=== PATIENT | male | born 1985 | race Caucasian/White ===

== ENCOUNTER 2023-11-18 11:03 | Emergency (ER) | payer BC, SELFPAY ==
[2023-11-18 11:03] VITALS: BMI 45.5
[2023-11-18 11:07] VITALS: BP 159/88
--- NOTE | 2023-11-18 11:42 | ED.GENMED ---
Addendum entered and electronically signed by Abdirahman Oneill PA-C 11/22/23 09:28:
Patient wound culture grew 3 separate organisms including Proteus mirabilis, Pseudomonas aeruginosa and MSSA. Patient was placed on doxycycline to go home with. Call placed to the patient to see how he is responding to the antibiotics but
unfortunately patient did not order picker/assembler. Voice message left for patient to contact us back. Patient may require antibiotic change. Pansensitive to levofloxacin.
Original Note:
History of Present Illness
General
Chief Complaint: Skin Problem
Source: patient
Time Seen by Provider: 11/18/23 11:25
History of Present Illness
History of Present Illness:
37-year-old male with past medical history of chronic venous stasis ulcer to the left lower extremity presenting to the emergency department for evaluation after he was told that the venous stasis ulcer was infected by his primary care provider on
Sunday and that he needed to go to the ER for IV antibiotics and further evaluation. Patient went to the ER yesterday where he was started on vancomycin and Zosyn and was going to get admitted but became frustrated as he says he did not see any
physician while at the ER and was frustrated with his care there so decided to leave AGAINST MEDICAL ADVICE. He notes that he was not given any prescriptions for antibiotics to go home with. He presents back to the emergency department today in
hopes to get an oral antibiotic as he notes that he has an exam for [place] tomorrow that he cannot miss as well as his birthday and does not wish to be admitted during this time. Patient states that he has an appointment with a vascular
surgeon for this coming and that he has seen wound care in the past but is looking for a new wound care provider. He notes that throughout the 6 years since he has had the ulcer that his leg has been infected and has gotten better usually
with just oral antibiotics. He denies any fevers, chills, rigors. He denies any history of diabetes and notes that he had blood work through his primary care provider recently for this. Patient does smoke but states he is down to 1 to 2
cigarettes daily. No other concerns.
Past History
Past History
ED Past Medical History: Psychiatric (Previous substance abuse but currently sober) and Other (Chronic venous stasis)
ED Past Surgical History: Orthopedic and Other
Social History
Tobacco: Smoker
Alcohol: None
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
Personal: Single
Living: alone
Employment: Employed
Review of Systems
Review of Systems
All Other Systems: ROS reviewed and negative except as documented in HPI and ROS
Phy Exam
Physical Exam
Physical Exam:
GENERAL: Alert , in no apparent distress
EYE: conjunctiva clear
Head: Normocephalic atraumatic
NECK: Supple,
ENT: mmm.
LUNGS: no acute respiratory distress
NEUROLOGICAL: Alert and oriented
SKIN: Warm and dry, left lower extremity: 2 weeping venous stasis ulcers to the lower leg. 1 along the mid medial lower leg measuring approximately 1-1/2 cm in size, surrounding erythema and weeping. 1 along the distal medial calcaneus measuring 8
mm circumferentially with minimal erythema but is also weeping. There is chronic venous stasis dermatitis noted to the bilateral lower extremities but the left lower leg has more erythema
MUSCULOSKELETAL: well perfused. Easily palpable pedal and tibial pulse. Cap refill less than 2 seconds and sensation is grossly intact to light touch
PSYCH: Normal and appropriate interaction.
Scores
Heart Failure Risk
Heart Failure Risk Score: Not Applicable
Heart Score for Chest Pain Patients
STEMI patient?: Not applicable
Withdrawal Assessment of Alcohol
Withdrawal Assessment Completed?: Not applicable
Course
Orders/Labs/Results
Orders:
Orders
11/18/23 11:41
US Periph Venous LOWER Ext LT Urgent
Comment:
Reason For Exam: chronic wound, poor healing, edema
11/18/23 11:53
Complete Blood Count/With Diff Urgent
Comprehensive Metabolic Panel Urgent
11/18/23 13:59
Wound Culture [Wound/Abscess/Other Culture] Urgent
ESAU Source: Leg
Specimen Description: Left
Date Specimen was Collected: 11/18/23
Time Specimen was Collected: 13:57
Abnormal Lab Results
11/18/23
11:53
RBC 3.96 L 10^6/uL
(4.70-6.10)
Hgb 12.0 L g/dL
(13.0-18.0)
Hct 34.6 L %
(39.0-52.0)
Immature Gran % 0.7 H %
(0-0.5)
Creatinine 0.5 L mg/dL
(0.7-1.3)
Glucose 105 H mg/dl
(70-99)
AST 93 H U/L
(17-59)
ALT 76 H U/L
(0-50)
11/18/23 11:53
11/18/23 11:53
Vital Signs
Initial and Last Documented VS:
Initial Vital Signs
Temp Pulse Resp BP Pulse Ox
98.2 F 84 18 159/88 98
11/18/23 11:07 11/18/23 11:07 11/18/23 11:07 11/18/23 11:07 11/18/23 11:07
Last Documented Vital Signs
Temp Pulse Resp BP Pulse Ox
98.2 F 84 18 142/79 100
11/18/23 11:07 11/18/23 11:07 11/18/23 11:07 11/18/23 14:40 11/18/23 14:40
MDM/Problems Addressed
Differential Diagnosis Includes:
Infected venous stasis ulcer, cellulitis, abscess, osteomyelitis, necrotizing fasciitis
MDM/Problems Addressed:
37-year-old male presenting the emergency department for evaluation of effected venous stasis ulcer. He has been dealing with this venous stasis ulcer for 6 years and notes that in previous infections he has done well with oral antibiotics. Seen
by primary care on Sunday who gave him 2 doses of doxycycline to start his treatment but advised to go to the ER for IV antibiotics and admission. Patient upset with his care at [facility] and signed out AMA last night. Presents to the ER
today stating he does not wish to be admitted but wants to be started on oral antibiotics as he has important activities at home that need to be cared for prior to being admitted. He already does have outpatient follow-up with vascular. He is
amenable to outpatient follow-up here with wound care. Will check labs and an ultrasound here. Reassessment following.
Chronic conditions affecting care: Other (Chronic venous stasis)
Acute Exacerbation and/or Progression of Chronic Illness: Other (Venous stasis ulcer)
*Radiology
Radiology exam reviewed: radiology read reviewed
*Pulse Oximetry
Patient hypoxic: no
*Critical Care Note
Total Time (30-74mins, 75-104mins- exclusive of procedures): Not Applicable
Data Reviewed
Review of Other/Old Records Reveals: Labs
Patient Management
Escalation/DeEscalation of care consider admission/obs:
Patient labs and ultrasound are unremarkable. He was given a prescription for doxycycline x 10 days. Provided with information for outpatient wound care center. Agreeable to return precautions. Stable for discharge home
ED Attending Note
-
Portions of this chart may have been created with voice recognition software.� Occasional wrong word or��sound alike� substitutions may have occurred due to the inherent limitations of voice recognition software.
Discharge Plan
Departure
Patient Disposition: Home (Routine Discharge)
Date of Disposition: 11/18/23
Time of Disposition: 14:38
Patient with high blood pressure during this ER visit?: Yes
Discharge Problem:
Venous stasis ulcer of left lower extremity, Cellulitis of left lower extremity
Instructions: Wound [place] ([place]), [facility]
Prescriptions:
New
doxycycline hyclate 100 mg tablet
100 mg PO BID 10 Days Qty: 20 0RF
Referrals:
Wound Care Center [Outside]
UNKNOWN - PT DOES,NOT KNOW [Family Provider] -
Interventions
Interventions:
*Risk Screen - Suicide Last Done: 11/18/23 11:13
*General Assessment Last Done: 11/18/23 11:13
*Neglect/Abuse Screening Last Done: 11/18/23 11:13
ED- Fall Risk Assessment Last Done: 11/18/23 12:03
*ED COVID-19 Vaccine History Last Done: 11/18/23 12:03
*Nursing Disposition Last Done: 11/18/23 14:59
ED-Skin Assessment Last Done: 11/18/23 12:03
Discharge Date and Time
Discharge Date/Time: 11/18/23 15:00
Print Language: ARABIC
[2023-11-18 11:58] VITALS: BP 157/98
[2023-11-18 12:00] VITALS: BP 146/121
[2023-11-18 12:07] LABS: % Basophils 0.5 % (0-2); % Immature Granulocytes 0.7 % (0-0.5); % Lymphocytes 25.6 % (20.5-51.1); % Monocytes 7.2 % (1.7-9.3); Absolute Eosinophils 0.1 10^3/uL (0-0.7); Absolute Lymphocytes 1.6 10^3/uL (1.2-3.4); Absolute Monocytes 0.4 10^3/uL (0.1-0.6); Hematocrit 34.6 % (39.0-52.0); Mean Corp Hgb Conc. 34.7 g/dL (33.0-37.0); Mean Corpuscular Hgb 30.3 pg (27.0-31.0); Mean Corpuscular Volume 87.4 fL (80.0-94.0); Mean Platelet Volume 9.7 fL (7.4-10.4); Nucleated Red Blood Cells % 0 % (-); Platelet Count 231 10^3/uL (130-400); Red Blood Cell Count 3.96 10^6/uL (4.70-6.10); Red Cell Dist. Width 13.3 % (11.5-14.5); White Blood Cell Count 6.1 10^3/uL (4.8-10.8)
[2023-11-18 12:21] LABS: ALT (SGPT) 76 U/L (0-50); AST (SGOT) 93 U/L (17-59); Albumin 3.9 g/dl (3.5-5.0); Alkaline Phosphatase 111 U/L (38-126); Blood Urea Nitrogen 11 mg/dl (9-20); Calcium 8.8 mg/dl (8.4-10.2); Carbon Dioxide 26 mmol/L (22-30); Chloride 106 mmol/L (98-107); Estimated Creatinine Clearance > 125 ml/min; Glucose 105 mg/dl (70-99); Potassium 3.9 mmol/L (3.5-5.1); Sodium 139 mmol/L (135-145); Total Bilirubin 0.7 mg/dl (0.2-1.3); Total Protein 7.2 g/dl (6.3-8.2); eGFR > 60.00
[2023-11-18 14:40] VITALS: BP 142/79
== END 2023-11-18 15:00 | disposition home or self-care (01) ==
LOC: EMR 11:03
PROVIDERS: Physician Assistant Medical; EMERGENCY PHYSICIAN Emergency Medicine
DX: I83.028 Varicose veins of left lower extremity with ulcer other part of lower leg (principal); L97.829 Non-pressure chronic ulcer of other part of left lower leg with unspecified severity; L03.116 Cellulitis of left lower limb; F17.210 Nicotine dependence, cigarettes, uncomplicated; R03.0 Elevated blood-pressure reading, without diagnosis of hypertension
CPT/HCPCS: 99284; 80053; 85025; 87070; 87077; 87147; 87186; 87205; 93971

== ENCOUNTER 2024-08-21 23:42 | Inpatient (IN) | payer BC, SELFPAY ==
[2024-08-21 17:40] VITALS: BP 172/90
[2024-08-21 18:15] LABS: % Basophils 0.7 % (0-2); % Eosinophils 0.5 % (0-6); % Immature Granulocytes 0.4 % (0-0.5); % Lymphocytes 16.9 % (20.5-51.1); % Neutrophils 72.5 % (42.2-75.2); Absolute Basophils 0.1 10^3/uL (0-0.2); Absolute Eosinophils 0.1 10^3/uL (0-0.7); Absolute Lymphocytes 1.6 10^3/uL (1.2-3.4); Absolute Monocytes 0.9 10^3/uL (0.1-0.6); Absolute Neutrophils 6.9 10^3/uL (1.4-6.5); Hematocrit 28.3 % (39.0-52.0); Hemoglobin 9.8 g/dL (13.0-18.0); Mean Corp Hgb Conc. 34.6 g/dL (33.0-37.0); Mean Corpuscular Hgb 28.9 pg (27.0-31.0); Mean Corpuscular Volume 83.5 fL (80.0-94.0); Nucleated Red Blood Cells % 0 % (-); Platelet Count 81 10^3/uL (130-400); Red Blood Cell Count 3.39 10^6/uL (4.70-6.10); White Blood Cell Count 9.6 10^3/uL (4.8-10.8)
[2024-08-21 18:17] LABS: Anisocytosis 1+; Hypochromasia 1+; Normal RBC Morphology No; Target Cells 1+
[2024-08-21 18:18] LABS: ALT (SGPT) 44 U/L (0-50); AST (SGOT) 167 U/L (17-59); Albumin 2.8 g/dl (3.5-5.0); Alkaline Phosphatase 170 U/L (38-126); Blood Urea Nitrogen 11 mg/dl (9-20); Calcium 8.3 mg/dl (8.4-10.2); Carbon Dioxide 16 mmol/L (22-30); Chloride 106 mmol/L (98-107); Glucose 108 mg/dl (70-99); Potassium 3.8 mmol/L (3.5-5.1); Sodium 138 mmol/L (135-145); Total Bilirubin 14.3 mg/dl (0.2-1.3); Total Protein 8.7 g/dl (6.3-8.2)
[2024-08-21 19:27] VITALS: BMI 43.3
--- NOTE | 2024-08-21 19:37 | ED.GENMED ---
History of Present Illness
General
Chief Complaint: Abnormal Lab Value
Source: patient
Time Seen by Provider: 08/21/24 19:20
History of Present Illness
History of Present Illness:
38-year-old male with past medical history of a left foot venous stasis ulcer, previous substance abuse presenting to the emergency department at the recommendation of his wound care doctor after his provider noted that he appeared jaundiced.
Patient states that he believes his symptoms started a few weeks ago but states he is overall unsure. He does note for a extended period of time he was taking excess Tylenol noting at times up to 24 tablets a day due to pain in his left lower
extremity from his venous stasis and wounds. Patient states he stopped taking the Tylenol about 3 weeks ago and switched to Motrin and he notes he is taking anywhere from 4 to 8 tablets of this. Patient also states that he recently relapsed into
his alcohol use and is drinking multiple seltzers per day. Patient is denying any current abdominal pain, fevers, chills, rigors, nausea, vomiting, bowel changes. Patient does note his urine is a dark jelena color. Patient denies any history of IV
drug abuse but does note a history of opiate use. He denies any known history of hepatitis or HIV. Family history was noncontributory for any GI related cancers
Past History
Past History
ED Past Medical History: Psychiatric (Previous substance abuse but currently sober) and Other (Chronic venous stasis)
ED Past Surgical History: Orthopedic and Other
Social History
Tobacco: Smoker
Alcohol: Chronic alcoholic
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
Personal: Single
Living: alone
Employment: Employed
Review of Systems
Review of Systems
All Other Systems: ROS reviewed and negative except as documented in HPI and ROS
Phy Exam
Physical Exam
Physical Exam:
GENERAL: Alert , in no apparent distress
EYE: icteric sclera
HEAD: NCAT
ENT: mmm.
CARDIAC: Regular rate and rhythm .
LUNGS: Clear breath sounds bilaterally, no acute respiratory distress, no wheezes/rales/rhonchi
ABDOMEN: Firm and distended but no pain on palpation, positive ascites, no r/g, no cvat
NEUROLOGICAL: Alert and oriented
SKIN: Warm and dry, skin intact. Diffusely jaundiced
MUSCULOSKELETAL: Wound to the left lower extremity along the medial posterior calcaneus, dried, no surrounding cellulitis
PSYCH: Normal and appropriate interaction.
Scores
Heart Failure Risk
Heart Failure Risk Score: Not Applicable
Heart Score for Chest Pain Patients
STEMI patient?: Not applicable
Withdrawal Assessment of Alcohol
Withdrawal Assessment Completed?: Not applicable
Course
Orders/Labs/Results
Orders:
Orders
08/21/24 17:48
Complete Blood Count/With Diff Urgent
Comprehensive Metabolic Panel Urgent
08/21/24 19:30
Urine Drug Abuse Screen Urgent
08/21/24 19:31
CT Abd/pel Without Iv Or Oral Urgent
Comment:
Reason For Exam: liver/renal failure
08/21/24 20:54
ABO2 Urgent
DialedIN Wristband Number:
Associate notified that ABO2 has been ordered: [id number]
Date: 08/21/24
Time: 21:24
Foreclosure Home Inspector ID: [id number]
Alcohol Urgent
HIV Combo Urgent
Hepatitis A IgM Antibody Urgent
Hepatitis B Core Ab, IgM Urgent
Hepatitis B Surface Antibody Urgent
Hepatitis B Surface Antigen Urgent
Hepatitis C Antibody Urgent
Lipase Urgent
PTT Urgent
Prothrombin Time Urgent
Salicylate Urgent
Tylenol [Acetaminophen] Urgent
08/21/24 21:33
Type+Screen Urgent
MEDOP [employer]K Wristband Number:
Abnormal Lab Results
08/21/24 08/21/24
17:48 20:54
RBC 3.39 L 10^6/uL
(4.70-6.10)
Hgb 9.8 L g/dL
(13.0-18.0)
Hct 28.3 L %
(39.0-52.0)
RDW 25.0 H %
(11.5-14.5)
Plt Count 81 L 10^3/uL
(130-400)
Absolute Neuts (auto) 6.9 H 10^3/uL
(1.4-6.5)
Absolute Monos (auto) 0.9 H 10^3/uL
(0.1-0.6)
Lymphocytes % 16.9 L %
(20.5-51.1)
PT 32.7 H Sec
(11.4-14.6)
APTT 73.0 H Sec
(23.4-35.0)
Carbon Dioxide 16 L mmol/L
(22-30)
Creatinine 1.8 H mg/dL
(0.7-1.3)
Glucose 108 H mg/dl
(70-99)
Calcium 8.3 L mg/dl
(8.4-10.2)
Total Bilirubin 14.3 H mg/dl
(0.2-1.3)
AST 167 H U/L
(17-59)
Alkaline Phosphatase 170 H U/L
(38-126)
Total Protein 8.7 H g/dl
(6.3-8.2)
Albumin 2.8 L g/dl
(3.5-5.0)
Lipase 624 H U/L
(23-300)
Salicylates < 1.0 L mg/dl
(2.0-20.0)
Acetaminophen < 10 L ug/ml
(10-30)
08/21/24 17:48
08/21/24 17:48
Vital Signs
Initial and Last Documented VS:
Initial Vital Signs
Temp Pulse Resp BP Pulse Ox
99.3 F 116 18 172/90 96
08/21/24 17:40 08/21/24 17:40 08/21/24 17:40 08/21/24 17:40 08/21/24 17:40
Last Documented Vital Signs
Temp Pulse Resp BP Pulse Ox
99.3 F 103 17 145/66 96
08/21/24 17:40 08/21/24 21:15 08/21/24 21:15 08/21/24 21:27 08/21/24 21:27
MDM/Problems Addressed
Differential Diagnosis Includes:
Liver failure secondary to Tylenol use, alcohol use, infectious etiology such as hepatitis B/C considered given his history of substance use, malignancy
MDM/Problems Addressed:
38-year-old male presenting emergency department for evaluation at the request of wound care provider for jaundice. Patient is profoundly jaundiced. Labs ordered in triage reveal hemoglobin of 9.8 and more concerning his chemistry with his bicarb
of 16, creatinine of 1.8, T bilirubin of greater than 14, AST of 167 and alkaline phosphatase of 170. I added on labs including coag, toxicology workup, hepatitis and HIV testing. CT of the abdomen and pelvis ordered as a noncontrast study given
patient's renal dysfunction. Patient will be admitted for further evaluation
Chronic conditions affecting care: Other (Substance/alcohol abuse)
*Radiology
Radiology exam reviewed: radiology read reviewed
*Pulse Oximetry
Patient hypoxic: no
*Critical Care Note
Total Time (30-74mins, 75-104mins- exclusive of procedures): Not Applicable
Data Reviewed
Review of Other/Old Records Reveals: Labs and Records
Patient Management
Escalation/DeEscalation of care consider admission/obs:
CT scan shows diffusely hypoattenuating liver that is mildly enlarged with small volume ascites and splenomegaly. I do not have concern for acute cholecystitis given patient is without pain, no nausea or vomiting. I suspect patient's symptoms are
most likely related to alcoholic hepatitis but cannot rule out Tylenol ingestion from longstanding use (patient does maintain he has not used Tylenol in at least 2 to 3 weeks). Hospitalist team to admit. GI team can evaluate and consult.
ED Attending Note
-
Portions of this chart may have been created with voice recognition software.� Occasional wrong word or��sound alike� substitutions may have occurred due to the inherent limitations of voice recognition software.
Discharge Plan
Departure
Patient Disposition: Admit
Date of Disposition: 08/21/24
Time of Disposition: 21:36
Presentation/result/management discussed w/ accepting MD/DO: Hospitalist
Discharge Problem:
Hepatitis, TYRESE (acute kidney injury), Alcohol abuse
Prescriptions:
No Action
milk thistle 150 mg Capsule
150 mg PO DAILY
ibuprofen 200 mg Tablet
800 mg PO HSPRN PRN (Reason: mild pain)
famotidine [Pepcid AC] 20 mg Tablet
20 mg PO DAILYPRN PRN (Reason: gerd)
omeprazole magnesium [Prilosec OTC] 20 mg Tablet,Delayed Release (Dr/Ec)
40 mg PO DAILY
Referrals:
NONE,* [Family Provider] -
Interventions
Interventions:
*Risk Screen - Suicide Last Done: 08/21/24 17:40
*General Assessment Last Done: 08/21/24 17:40
*Neglect/Abuse Screening Last Done: 08/21/24 17:40
*ED COVID-19 Vaccine History Last Done: 08/21/24 17:40
Discharge Date and Time
Print Language: UPPER SORBIAN
[2024-08-21 21:25] LABS: Acetaminophen < 10 ug/ml (10-30); Alcohol 64 mg/dl; INR 3.15; Lipase 624 U/L (23-300); PT 32.7 Sec (11.4-14.6); Salicylate < 1.0 mg/dl (2.0-20.0)
[2024-08-21 21:26] VITALS: BP 143/66
[2024-08-21 21:27] VITALS: BP 145/66
[2024-08-21 22:06] LABS: Hepatitis C Antibody Negative (Negative)
[2024-08-21 22:45] LABS: Hepatitis B Surface Antigen Negative (Negative)
--- NOTE | 2024-08-21 22:49 | HPS.HSE ---
Addendum entered and electronically signed by Carlos Maurer DO 08/22/24 00:06:
Patient seen and examined independently. Agree with findings and plan as set forth by Jennifer Lucero PA-C.
Patient is a 38y M with PMH significant for obesity and polysubstance abuse who presents to ED for evaluation of jaundice. Patient states that his noted yellowing of his eyes about one month ago. He was seen at Wound Care today (for
chronic L ankle wound) and was noted to be grossly jaundiced. He was referred to the ED for further evaluation.
Patient denies any abdominal pain, N/V, fevers / chills, etc.
Patient states that he started drinking alcohol at age 10. He was a heavy drinker and drug user (opioids / pills) for several years. He has been sober for the past 5-6 years.
Patient recently was placed on disability (about one month ago) and notes that he started drinking again. He has been drinking an average of 8 White Claws per day for the past 3-4 weeks. He has recently started to 'wean' this down and drank 3
today.
In addition to the alcohol intake, patient notes that he had been taking 24 tabs of Tylenol daily for pain control since May.
When his noted the yellowed eyes, he cut the Tylenol use down to 12 tabs a day and then stopped completely a few weeks ago.
Ass:
Acute / Subacute Hepatitis
TYRESE
Normocytic Anemia
Thrombocytopenia
Chronic Left Ankle Wound
Morbid Obesity
Alcohol Use Disorder
Plan:
Admit for further evaluation and treatment.
Abnormal liver functions / gross jaundice / anemia and thrombocytopenia noted.
Suspect due primarily to EtOH +/- Tylenol overuse (over the past few months).
GI evaluation for additional recommendations.
Monitor for withdrawal symptoms and treat accordingly.
Wound Care eval re: L ankle wound.
Original Note:
Family Physician
-
Family Physician: * NONE
Chief Complaint
-
Jaundice
History of Present Illness
Patient is a 38 y/o male who presents with jaundice. Patient reports he has been dealing with a wound on his left ankle for the past six years. He has been following at the wound care center recently for the wound. He reports about 3 months ago he
started taking large amounts of Tylenol about 24 tablets ago, then he cut down to about 12 tablets a day, which he stopped about 3 weeks ago. At that time he changed taking 800mg ibuprofen at bedtime for the pain. He reports he had to go on
disability due to the ankle wound and since then he has become increasingly depressed. He states he started drinking about 8 White Claw hard seltzers a day with last drink just prior to arrival.
Medical History
Past Medical History
Past Medical History: Reports Other
Additional Past Medical History:
Chronic Left Ankle Wound
Prior Opioid Use Disorder - Last usage 2017
Past Surgical History: Reports Other
Additional Past Surgical History:
Hernia Repair
Knee Arthroscopy
Social History
Tobacco: Non-smoker
Alcohol: Daily
Drug: Former User
Family History
Family History: Not pertinent
Allergies / Home Medications
Allergies reflects when Allergies were last updated in [employer].
Home Medications with original date entered in [employer]
Allergy/Medication List:
Allergies
Allergy/AdvReac Type Severity Reaction Status Date / Time
No Known Allergies Allergy Verified 08/21/24 17:43
Home Medications
famotidine 20 mg tablet (Pepcid AC) 20 mg PO DAILYPRN PRN gerd 08/21/24
ibuprofen 200 mg tablet 800 mg PO HSPRN PRN mild pain 08/21/24
milk thistle 150 mg capsule 150 mg PO DAILY 08/21/24
omeprazole magnesium 20 mg tablet,delayed release (Prilosec OTC) 40 mg PO DAILY 08/21/24
Review of Systems
-
A 12 point ROS was completed and negative except as noted: Yes
Constitutional: Denies Fever or Chills
Respiratory: Denies Cough or Trouble Breathing
Cardiac: Denies Chest Pain or Palpitations
Abdomen/GI: Reports See HPI
Physical Exam
Vital Signs
Vital Signs
Temp Pulse Resp BP Pulse Ox
99.3 F 103 17 145/66 96
08/21/24 17:40 08/21/24 21:15 08/21/24 21:15 08/21/24 21:27 08/21/24 21:27
Physical Exam
General: Comfortable and Conversant
HEENT: Other (Sclera Icteric)
Respiratory: Clear and Non Labored Respirations
Cardiac: S1/S2 and Regular Rhythm
GI: Soft and Non Tender
Rectal: Deferred by Provider
Musculoskeletal: No Clubbing and No Cyanosis
Skin: Warm, Dry, Jaundice and Other (Left ankle wound wrapped in KRISTIAN)
Neuro: Awake, Alert, Oriented and Nonfocal/grossly intact
Psych: Calm
Laboratory Results
-
08/21/24 17:48
08/21/24 17:48
Laboratory Results
PT 32.7 Sec (11.4-14.6) H 08/21/24 20:54
INR 3.15 08/21/24 20:54
APTT 73.0 Sec (23.4-35.0) H 08/21/24 20:54
Total Bilirubin 14.3 mg/dl (0.2-1.3) H 08/21/24 17:48
AST 167 U/L (17-59) H 08/21/24 17:48
ALT 44 U/L (0-50) 08/21/24 17:48
Alkaline Phosphatase 170 U/L (38-126) H 08/21/24 17:48
Lipase 624 U/L (23-300) H 08/21/24 20:54
Data Reviewed
-
CT Scan: Report Reviewed by me
Lab Data: Labs Reviewed by me
Impression/Plan
-
Acute Hepatitis, suspect acute component from alcohol, concern for subacute/chronic liver damage from previous excess Tylenol use
-Consult GI
-Trend LFTs and PT/INR
-Check Hepatitis Panel
Acute Kidney Injury
-Hold ibuprofen
-Continue IVFs
-Recheck labs in AM
Normocytic Anemia
-Check iron studies, vitamin b12 and folate
Thrombocytopenia, likely from alcohol
-Monitor platelet count
Left Ankle Wound
-Consult wound care
Alcohol Use Disorder
-Continue alcohol withdrawal protocol
-Continue thiamine and folic acid
Code Status: Full Code
[2024-08-21 23:03] LABS: Hepatitis B Surface Antibody Negative
[2024-08-21 23:05] VITALS: BP 142/61
[2024-08-22] VITALS: BP 140/96
[2024-08-22 00:23] VITALS: BP 140/96
[2024-08-22 00:29] LABS: Iron 155 ug/dl (49-181)
[2024-08-22 00:38] LABS: Percent Saturation 77 % (20-50); Total Iron Binding Capacity 200 ug/dl (261-462)
[2024-08-22 00:49] VITALS: BMI 41.6
[2024-08-22 00:50] VITALS: BP 150/97
--- NOTE | 2024-08-22 00:50 | PTCARENOTE ---
Pt arrived onto floor @0050. Pt AAOx3 and able to ambulate into room without assistance. Pt with no complaints of pain or SOB at this time. Pt oriented to room and call reina; will continue to monitor.
[2024-08-22] MEDS: NSS 1000 IV ×2 (01:11→09:05)
[2024-08-22 02:23] LABS: Amphetamines Negative (Negative); Barbiturates Negative (Negative); Benzodiazepines Negative (Negative); Buprenorphine Negative (Negative); Cocaine Negative (Negative); Marijuana Negative (Negative); Methadone Negative (Negative); Methamphetamines Negative (Negative); Opiates Negative (Negative); Phencyclidine Negative (Negative); Tricyclic Antidepressants Negative (Negative)
[2024-08-22 06:00] VITALS: BMI 41.6
[2024-08-22 06:07] LABS: Hepatitis A IgM Antibody Negative (Negative); Hepatitis B Core Ab, IgM Negative (Negative)
[2024-08-22 06:39] LABS: Vitamin B12 > 1000 pg/ml (239-931)
[2024-08-22 06:43] LABS: Folate 2.9 ng/ml (2.76-20)
--- NOTE | 2024-08-22 07:14 | CON.GI ---
Addendum entered and electronically signed by Yvonne Contreras DO 08/22/24 12:15:
The patient was seen and examined by me independently in collaboration with the nurse practitioner.
Past medical history/social history/medications/allergies/family history reviewed.
Lab data and imaging data reviewed.
Brian Barillas is a 38 y.o. male w/ pmhx polysubstance abuse (percocet abuse until 2018; alcohol abuse, last used 4 months ago) admitted with jaundice found to have significantly elevated LFTs and coagulopathy concerning for acute liver failure. No
known prior liver disease or elevations in LFTs. He admits to significant Tylenol use-- up to 24 tylenol tablets daily, last use was 4 months ago, at which time he switched to motrin 200mg up to 12 tablets daily, decreased to 4 tablets at night. He
was using these medications for pain related to venous stasis wounds on his ankle. He reports drinking 6 white claws daily.
PT 32.7 --> 34.2
INR 3.15 --> 3.40
UDS negative
Salicylates <1
Acetaminophen level <10
Etoh level 64
Hgb 9.8 (previously 12.0 in October 2023)
Plt 78
Na 138
K3.8
BUN 11 -->12
Cr. 1.8 --> 1.4
Tbili 14.3 --> 14.8
GGT 116
AST 167 -->153
ALT 44 -->45
Alk phos 170--> 138
Albumin 2.8
Lipase 624
Ferritin 137
B12 >1000
Folate 2.9
HAV IgM Ab negative
HBsAg negative
HBsAb neg
HBcAb IgM neg
HCV Ab neg
HIV Ag/Ab pending
CT A/P w/o contrast: The liver appears diffusely hypoattenuating. Mildly enlarged. Gallbladder is mildly distended which may be secondary to chronic liver disease or fasting state. Small volume ascites and splenomegaly suggestive of portal
hypertension. There is diffuse submucosal fatty deposition within the ascending and proximal transverse colon which is nonspecific and can be seen as a sequela of chronic inflammation.
#Acute on likely chronic liver injury-- suspect multifactorial, etoh + DILI (tylenol and motrin) with clinically significant portal HTN, coagulopathy, anemia and thrombocytopenia
-no evidence of encephalopathy, mental status remains intact
-thrombocytopenia, splenomegaly and mild ascites c/w portal HTN
-DF >100
-NAC gtt started 08/22
-recommend abdominal US w/ dopplers
-hepatitis serologies negative
-thiamine, folate
-give dose of vitamin K
-repeat labs at noon, if worsening coagulopathy, hyponatremia, hypoglycemia or change in mental status, will call transplant center for transfer; if patient is stable to stay at , will order additional serologies
Original Note:
Consultation
-
Date/Time Consultation Requested: 08/22/2439
Date/Time Consultation Performed: 08/22/24 0695
Requesting Provider: Jennifer Lucero PA-C
Performing Provider: HEATHER Drummond, Marisabel Contreras DO
Reason for Consultation: increased LFT's
Medical History
Chief Complaint / HPI
Chief Complaint: jaundice, shakiness
History of Present Illness:
Pt is a 38yo with hx prior substance abuse(ETOH in past with relapse 4 months ago, hx Percocet abuse til 2018), chronic ankle wound, hernia repair with onset of jaundice without prior hx known liver disease. He was noted change in skin color
about 1 month ago and marked jaundice in wound center and sent to ER for evaluation. Pt also admits to taking up to 24 Tylenol per day til 4 months ago when he stopped working due to leg wounds and recently began taking Ibuprofen 12 per day with
recent cut back to 4 tabs at night. He also admits to 6 white claws per day. Pt denies any recent OP labs. In ER noted with neg tox screen including Salicylates<1 and Acetaminophen <10, ETOH level 64, bili 14,3, AST 167, ALT 44, alk phos 170,
lipase 624, creat 1,8, albumin 2.8, INR 3.15, hepatitis panel neg. CT on admission without contrast with liver with diffuse hypoattenuation with mild enlargement with steatosis or hepatitis, small volume ascites, splenomegaly, portal HTN, GB
distention with chronic liver disease vs fasting state, fat deposition within ascending and proximal transverse colon seen with chronic inflammation.
Pt admits to chronic GERD and small amount of rectal bleeding but denies odynophagia, dysphagia, abdominal pain, increased abdominal girth, diarrhea, constipation or black stools. No hx EGD or colonoscopy in past. No prior hepatology
evaluation. + old tattoos, no known hx hepatitis, recently added milk thistle but no other supplement use.
Past Medical History
Past Medical History: Other (substance abuse, venous stasis with chronic left ankle wound)
Past Surgical History: Orthopedic (knee arthroscopy) and Other (hernia repair)
Social History
Tobacco: Former Smoker (quit 6 months ago)
Alcohol: Daily (6 white claws daily)
Drug: Other (recent Tylenol/Ibuprofen use, hx percocet use last 2017 )
Personal: Other (ex )
Living: Other (ex )
Employment: Not Employed (quit with concern for venous status wounds)
Family History
Family History: Other (no family hx liver problems)
Allergies / Home Medications
Allergy/AdvReac Type Severity Reaction Status Date / Time
No Known Allergies Allergy Verified 08/21/24 17:43
�Medication �Instructions �Recorded
famotidine 20 mg tablet (Pepcid AC) 20 mg PO DAILYPRN PRN gerd 08/21/24
ibuprofen 200 mg tablet 800 mg PO HSPRN PRN mild pain 08/21/24
milk thistle 150 mg capsule 150 mg PO DAILY 08/21/24
omeprazole magnesium 20 mg 40 mg PO DAILY 08/21/24
tablet,delayed release (Prilosec
OTC)
Review of Systems
-
History Source: Patient
Constitutional: Reports Fatigue and Other (admits to mild tremors )
EENT: Reports No Symptoms
Respiratory: Reports No Symptoms
Cardiac: Reports No Symptoms
Abdomen/GI: Reports Other (chronic GERD)
: Reports Dark Urine (intermittent then noted daily last 2 weeks )
Skin: Reports Other (LE wounds and swelling )
Neurological: Reports Weakness
Endocrine: Reports No Symptoms
Hematologic/Lymphatic: Reports No Symptoms
Vital Signs
Temp Pulse Resp BP Pulse Ox
97.8 F 101 18 150/97 98
08/22/24 00:50 08/22/24 00:50 08/22/24 00:50 08/22/24 00:50 08/22/24 00:50
Physical Exam
Exam
General: Other (marked jaundice with icteric sclera )
HEENT: Other (poor dentitian )
Respiratory: Clear
Cardiac: Peripheral Edema and Other (tachy low 100's)
GI: Soft, Non Tender and Distended (minimal )
Musculoskeletal: No Clubbing and No Cyanosis
Skin: Warm and Dry
Neuro: Awake, Alert, AO x 3 and Other (b/l mild tremors )
Psych: Calm
Results
WBC 9.6 10^3/uL (4.8-10.8) 08/21/24 17:48
Hgb 9.8 g/dL (13.0-18.0) L 08/21/24 17:48
Hct 28.3 % (39.0-52.0) L 08/21/24 17:48
MCV 83.5 fL (80.0-94.0) 08/21/24 17:48
Plt Count 81 10^3/uL (130-400) L 08/21/24 17:48
Absolute Neuts (auto) 6.9 10^3/uL (1.4-6.5) H 08/21/24 17:48
PT 32.7 Sec (11.4-14.6) H 08/21/24 20:54
INR 3.15 08/21/24 20:54
APTT 73.0 Sec (23.4-35.0) H 08/21/24 20:54
Sodium 138 mmol/L (135-145) 08/21/24 17:48
Potassium 3.8 mmol/L (3.5-5.1) 08/21/24 17:48
Chloride 106 mmol/L (98-107) 08/21/24 17:48
Carbon Dioxide 16 mmol/L (22-30) L 08/21/24 17:48
BUN 11 mg/dl (9-20) 08/21/24 17:48
Creatinine 1.8 mg/dL (0.7-1.3) H 08/21/24 17:48
Calcium 8.3 mg/dl (8.4-10.2) L 08/21/24 17:48
Total Bilirubin 14.3 mg/dl (0.2-1.3) H 08/21/24 17:48
AST 167 U/L (17-59) H 08/21/24 17:48
ALT 44 U/L (0-50) 08/21/24 17:48
Alkaline Phosphatase 170 U/L (38-126) H 08/21/24 17:48
Lipase 624 U/L (23-300) H 08/21/24 20:54
Hepatitis A IgM Ab Negative (Negative) 08/21/24 20:54
Hep Bs Antibody Negative 08/21/24 20:54
Hep B Core IgM Ab Negative (Negative) 08/21/24 20:54
Hepatitis C Antibody Negative (Negative) 08/21/24 20:54
Diagnostic Image Results:
08/21/24 CT A/p without contrast
The liver is diffusely hypoattenuating and mildly enlarged, possibly secondary to steatosis or hepatitis.
Small volume ascites and splenomegaly suggestive of portal hypertension.
The gallbladder appears mildly distended which may be secondary to chronic liver disease or fasting state. If there is concern for acute cholecystitis consider dedicated abdominal ultrasound for further evaluation.
There is diffuse submucosal fatty deposition within the ascending and proximal transverse colon which is nonspecific however can be seen as a sequelae of chronic inflammation.
Prior GI Procedures:
EGD: none
Colonoscopy: none
Assessment / Plan
-
Pt is a 38yo with hx prior substance abuse(ETOH in past with relapse 4 months ago, hx Percocet abuse til 2018), chronic ankle wound, hernia repair with onset of jaundice without prior hx known liver disease. He was noted change in skin color
about 1 month ago and marked jaundice in wound center and sent to ER for evaluation. Pt also admits to taking up to 24 Tylenol per day til 4 months ago when he stopped working due to leg wounds and recently began taking Ibuprofen 12 per day with
recent cut back to 4 tabs at night. He also admits to 6 white claws per day. Pt denies any recent OP labs. In ER noted with neg tox screen including Salicylates<1 and Acetaminophen <10, ETOH level 64, bili 14,3, AST 167, ALT 44, alk phos 170,
lipase 624, creat 1,8, albumin 2.8, INR 3.15, hepatitis panel neg. CT on admission without contrast with liver with diffuse hypoattenuation with mild enlargement with steatosis or hepatitis, small volume ascites, splenomegaly, portal HTN, GB
distention with chronic liver disease vs fasting state, fat deposition within ascending and proximal transverse colon seen with chronic inflammation. No hx EGD or colonoscopy in past. No prior hepatology evaluation. + old tattoos, no known hx
hepatitis, recently added milk thistle but no other supplement use.
-jaundice with marked elevated LFT's
-ETOH abuse with marked elevated DF
-ETOH withdrawal
-recent increased Tylenol/NSAID use
-TYRESE on admission
-marked coagulopathy
-hypoalbuminemia
-anemia
-thrombocytopenia
-imaging with concern for portal HTN, splenomegaly, GB distention, small volume ascites
other med problems:
-chronic ankle wound
-hx polysubstance abuse
-poor dentition
PLAN:
etiology of liver dysfunction related to ETOH use, recent increased Tylenol use vs multifactoral vs other
with noted jaundice over last month likely more progressive issue than acute liver injury
DF marked elevated 104.9 with poor prognosis with control of 13
MELD 3.0 35 based on admission labs
agree with NAC
will give dose of vitamin K
neuro check Q 2 hours
monitor for DT's
cont thiamine and folate
2 gram na diet- needs good nutrition with supplement at HS
trend labs -- repeat at noon
with significant elevated DF and MELD concern for very poor prognosis
if noon labs remain abnormal will need serology work up at vs tertiary center and may need tertiary center transfer-- hepatitis panel neg
discussed ETOH/substance abuse with need for abstinence
eventual hep A/B vaccination, EGD
close monitoring - discussed with nursing staff
all questions answered
-
-
Thank you for consultation and allowing me to participate in the patient's care. Please call the refrigeration houseman GI physician during the after hours with any questions or concerns.
[2024-08-22 07:30] VITALS: BP 156/94
[2024-08-22 08:38] LABS: Hematocrit 25.3 % (39.0-52.0); Hemoglobin 8.9 g/dL (13.0-18.0); Mean Corp Hgb Conc. 35.2 g/dL (33.0-37.0); Mean Corpuscular Hgb 28.9 pg (27.0-31.0); Mean Corpuscular Volume 82.1 fL (80.0-94.0); Mean Platelet Volume 11.3 fL (7.4-10.4); Platelet Count 78 10^3/uL (130-400); Red Blood Cell Count 3.08 10^6/uL (4.70-6.10); Red Cell Dist. Width 25.6 % (11.5-14.5); White Blood Cell Count 8.9 10^3/uL (4.8-10.8)
[2024-08-22] MEDS: ACETADOTE 275 MG IV (08:51)
[2024-08-22] MEDS: PROTONIX 40 MG PO (08:53)
[2024-08-22] MEDS: FOLVITE 1 MG PO (08:53)
[2024-08-22] MEDS: THIAMINE INJECTION 200 MG IV ×2 (08:53→19:08)
[2024-08-22 08:54] LABS: ALT (SGPT) 45 U/L (0-50); AST (SGOT) 153 U/L (17-59); Albumin 2.5 g/dl (3.5-5.0); Alkaline Phosphatase 138 U/L (38-126); Blood Urea Nitrogen 12 mg/dl (9-20); Carbon Dioxide 21 mmol/L (22-30); Chloride 108 mmol/L (98-107); Estimated Creatinine Clearance 105 ml/min; GGTP 116 U/L (15-73); Glucose 80 mg/dl (70-99); Phosphorus 4.4 mg/dl (2.5-4.5); Potassium 3.8 mmol/L (3.5-5.1); Sodium 138 mmol/L (135-145); Total Bilirubin 14.8 mg/dl (0.2-1.3); eGFR > 60.00
[2024-08-22 08:57] LABS: PT 34.2 Sec (11.4-14.6)
--- NOTE | 2024-08-22 09:35 | W.PN.HOSP.TC ---
Today's Communication/Plan
-
see PN
Assessment / Plan
Assessment / Plan
38yo M with PMHx of b/l LE venous stasis with LLE wound developed months ago, alcohol abuse came with c/o yellowing sclera progressed for about 1 month. He was taking large doses of tylenol at home for his wound pain, but stopped 2 weeks ago since
found out about risk of liver failure with it. Since then he was taking ibuprofen. Also relapsed drinking approximately 6 months ago. Had positive alkohol level in blood on admisison. Found acute liver falire and TYRESE.
A/P:
#Acute liver failure
#Alcohol abuse with withdrawal
#Coagulopathy 2/2 liver failure
Acetylcysteine
Follow LFT, INR
Unclear if 2/2 alcohol only or complicated by recent tylenol use
GI follows
Avoid antiplatelets, anticoagulation and hepatotoxic drugs
Thiamine/Folate and watch for DT, MSAS protocol
CT with no dilated biliary duct
s/p vit K
#TYRESE
questionable hepatorenal syndrome, but Cr improving on hydration - cont IVF and follow Cr
#Anemia
#thrombocytopenia
anysocytosis and target cells - alcohol induced BM supression
Follow CBC
#LLE venous stadid wound
Wound care
Does not seem to be infected
#DJD
PT/OT
DVT ppx SCDs
Full code
Declined call to family
I have spent at least 57min reviewing chart, test results, communication with consultants and providing direct patient care
Anticipated Discharge: > 48 hours
Subjective/Interval History
-
Date of Service: August 22, 2024
Objective Data
-
Labs:
Laboratory Results
08/22/24 08/22/24
08:07 12:00
WBC 8.9 Pending
Hgb 8.9 L Pending
Hct 25.3 L Pending
Plt Count 78 L Pending
PT 34.2 H Pending
INR 3.40 Pending
Sodium 138 Pending
Potassium 3.8 Pending
Chloride 108 H Pending
Carbon Dioxide 21 L Pending
BUN 12 Pending
Creatinine 1.4 H Pending
Glucose 80 Pending
Calcium 8.0 L Pending
Total Bilirubin 14.8 H Pending
AST 153 H Pending
ALT 45 Pending
Alkaline Phosphatase 138 H Pending
Vital Signs:
Vital Signs
Temp Pulse Resp BP Pulse Ox
98.0 F 113 24 156/94 97
08/22/24 07:30 08/22/24 07:30 08/22/24 07:30 08/22/24 07:30 08/22/24 07:30
I&O
08/21/24 08/22/24 08/23/24
06:59 06:59 06:59
Intake Total 700 / 700
Balance 700 / 700
Review of Systems
-
History Source: Patient
All other systems: Reviewed and negative
Physical Exam
-
General: No Apparent Distress
HEENT: Normocephalic
Respiratory: Clear to Auscultation
Cardiac: Regular Rhythm
GI: Soft, Nontender and Distended
Genito-urinary: No Costovertebral Tender
Musculoskeletal: No Clubbing, No Cyanosis, Edema, Right Lower Extrem and Edema, Left Lower Extrem
Skin: Warm and Jaundice
Neuro: Awake, Alert, Oriented and AO x 3
Psych: Calm
[2024-08-22] MEDS: ACETADOTE 525 MG IV (11:02)
[2024-08-22] MEDS: MEPHYTON 10 MG PO (11:02)
[2024-08-22 11:32] VITALS: BMI 41.6
--- NOTE | 2024-08-22 11:45 | PTCARENOTE ---
08/22- Patient reported some red smears upon wiping after a bowel movement. He states, 'I know it's not in the stool because I noticed nothing in the bowel movement itself or when I first wiped. I only noticed the red after a few times wiping, and
it was just smears.' He states he has had hemmorhoids in the past. This RN examined externally and notice no external hemorrhoids at this time. Advised we can heme test his stool next BM. He verbalizes understanding.
[2024-08-22 11:53] LABS: White Blood Cell Count 8.6 10^3/uL (4.8-10.8)
[2024-08-22 11:54] LABS: Hematocrit 26.2 % (39.0-52.0); Hemoglobin 9.3 g/dL (13.0-18.0); Mean Corp Hgb Conc. 35.5 g/dL (33.0-37.0); Mean Corpuscular Hgb 29.6 pg (27.0-31.0); Mean Corpuscular Volume 83.4 fL (80.0-94.0); Platelet Count 82 10^3/uL (130-400); Red Blood Cell Count 3.14 10^6/uL (4.70-6.10); Red Cell Dist. Width 25.3 % (11.5-14.5)
[2024-08-22 11:58] LABS: INR 3.75; PT 36.7 Sec (11.4-14.6)
[2024-08-22 12:32] LABS: AST (SGOT) 141 U/L (17-59); Albumin 2.7 g/dl (3.5-5.0); Alkaline Phosphatase 67 U/L (38-126); Blood Urea Nitrogen 14 mg/dl (9-20); Calcium 8.1 mg/dl (8.4-10.2); Carbon Dioxide 16 mmol/L (22-30); Chloride 106 mmol/L (98-107); Estimated Creatinine Clearance 105 ml/min; Glucose 88 mg/dl (70-99); Potassium 3.9 mmol/L (3.5-5.1); Sodium 138 mmol/L (135-145); Total Bilirubin 14.9 mg/dl (0.2-1.3); Total Protein 8.5 g/dl (6.3-8.2); eGFR > 60.00
[2024-08-22 12:33] LABS: ALT (SGPT) 44 U/L (0-50)
--- NOTE | 2024-08-22 13:38 | W.PN.UPDATE ---
Update Note
Progress Note Update
Called [facility] Hepatology Transfer Line to discuss patient given afternoon labs show INR rising. Mental status remains intact. He was accepted for transfer by Dr. Larios. Discussed with hospitalist Dr. Guzman who will call transfer center to begin
process. However, no beds available at this time. Time of transfer TBD.
--- NOTE | 2024-08-22 13:47 | W.DCSUMMARY ---
Discharge Summary
Discharge Data
Date of Admission: 08/21/24
Date of Discharge: 08/22/24
-
Pending Results: No
Hospital Course
38yo M with PMHx of b/l LE venous stasis with LLE wound developed months ago, alcohol abuse came with c/o yellowing sclera progressed for about 1 month. He was taking large doses of tylenol at home for his wound pain, but stopped 2 weeks ago since
found out about risk of liver failure with it. Since then he was taking ibuprofen. Also relapsed drinking approximately 6 months ago. Had positive alkohol level in blood on admisison. Found acute liver faliure and TYRESE. With worsening labs - GI
recommended for transfer to the tertiary facility. Patient accepted in [facility] by Dr. Larios
Medcially stable for transfer to [facility]
Patient was managed for:
#Acute liver failure
#Alcohol abuse with withdrawal
#Coagulopathy 2/2 liver failure
#TYRESE
#Anemia
#thrombocytopenia
#LLE venous stadid wound
Wound care
#DJD
Discharge Plan
-
Patient Disposition: Other
Discharge Diagnosis/Procedures: [facility]
Diet: Regular
Referrals:
NONE,* [Family Provider] -
Prescriptions:
New
lorazepam [Ativan] 2 mg/mL Solution
1 mg IV Q1HPRN PRN (Reason: MSAS 8-11) Qty: 0 0RF
lorazepam [Ativan] 2 mg/mL Solution
2 mg IV Q1HPRN PRN (Reason: MSAS > 11) Qty: 0 0RF
folic acid 1 mg Tablet
1 mg PO DAILY Qty: 0 0RF
lorazepam 1 mg Tablet
1 mg PO Q2HPRN PRN (Reason: MSAS 5-7) Qty: 0 0RF
acetylcysteine 200 mg/mL (20 %) Solution
10,000 mg IV ONCE Qty: 0 0RF
acetylcysteine 200 mg/mL (20 %) Solution
5,000 mg IV ONCE Qty: 0 0RF
thiamine mononitrate (vit B1) 100 mg Tablet
100 mg PO BID Qty: 0 0RF
IV with Additives
0.9% Sodium Chloride 1000 ml [Nss] 1000 ML
125 mls/hr IV
Ordered By: Gilberto Guzman MD
Last Taken: 08/22/24 09:05 1,000 mls
Continued
famotidine [Pepcid AC] 20 mg Tablet
20 mg PO DAILYPRN PRN (Reason: gerd)
omeprazole magnesium [Prilosec OTC] 20 mg Tablet,Delayed Release (Dr/Ec)
40 mg PO DAILY
Discontinued
milk thistle 150 mg Capsule
150 mg PO DAILY
ibuprofen 200 mg Tablet
800 mg PO HSPRN PRN (Reason: mild pain)
Discharge Orders:
Discharge Patient (As Directed); Ordered 08/22/24
Ordered By: Gilberto Guzman
Discharge Date and Time
Print Language: SENEGALESE
--- NOTE | 2024-08-22 14:22 | CM ---
manager technology reviewed patient's chart and met with patient and patient stated that he is an emergent transfer to [facility] today. Lives with ex , 2 story home independent with adl's and ambulation, no dme.
PCP: None
Pharmacy: [facility]
Plan; Emergent transfer to [facility] today.
[2024-08-22 14:36] LABS: HIV Combo Negative (Negative)
--- NOTE | 2024-08-22 14:59 | W.PN.UPDATE ---
Update Note
Progress Note Update
Pt now clarifying ETOH use concern as taking high ETOH white claw-- add culture data as need to consider prednisolone. Reviewed with patient and nursing staff he is accepted at [facility] for hepatology eval as INR continues to increase. All questions
answered. Pt agreeable for transfer
[2024-08-22 16:32] VITALS: BP 179/96
[2024-08-22 16:36] LABS: Urine Albumin 2+ (Neg - Trace); Urine Bilirubin 3+ (Negative); Urine Character Slightly Cloudy (Clear); Urine Color Yellow; Urine Glucose Negative (Negative); Urine Ketone 1+ (Negative); Urine Leukocyte 1+ (Negative); Urine Nitrite Negative (Negative); Urine Occult Blood 2+ (Negative); Urine Urobilinogen 3+ (Neg - 1+)
[2024-08-22] MEDS: ACETADOTE 1050 MG IV (16:47)
[2024-08-22 17:15] LABS: Urine Hyaline Cast >15 /LPF (0-2); Urine Mucus Few; Urine White Cell Cast 0-2 /LPF
[2024-08-22 17:16] LABS: Urine Bacteria Moderate (Negative); Urine Red Blood Cell 0-2 /HPF (0-2)
[2024-08-22] MEDS: STERILE WATER FOR INJECTION 10 ML IV (18:00)
[2024-08-22] MEDS: ROCEPHIN 1000 MG IV (18:00)
[2024-08-22 23:00] VITALS: BP 154/85
[2024-08-23 06:00] VITALS: BMI 42.1
[2024-08-23 07:55] VITALS: BP 148/97
[2024-08-23] MEDS: NSS IV ×2 (08:22)
[2024-08-23] MEDS: FOLVITE 1 MG PO (08:23)
[2024-08-23] MEDS: THIAMINE INJECTION 200 MG IV (08:23)
[2024-08-23] MEDS: PROTONIX 40 MG PO (08:23)
[2024-08-23 08:56] LABS: INR 3.45; PT 34.5 Sec (11.4-14.6)
[2024-08-23 08:58] LABS: % Basophils 0.5 % (0-2); % Eosinophils 1.3 % (0-6); % Immature Granulocytes 0.5 % (0-0.5); % Lymphocytes 20.5 % (20.5-51.1); % Monocytes 12.9 % (1.7-9.3); % Neutrophils 64.3 % (42.2-75.2); Absolute Eosinophils 0.1 10^3/uL (0-0.7); Absolute Lymphocytes 1.7 10^3/uL (1.2-3.4); Absolute Monocytes 1.1 10^3/uL (0.1-0.6); Absolute Neutrophils 5.4 10^3/uL (1.4-6.5); Hematocrit 25.8 % (39.0-52.0); Hemoglobin 8.8 g/dL (13.0-18.0); Mean Corp Hgb Conc. 34.1 g/dL (33.0-37.0); Mean Corpuscular Hgb 28.9 pg (27.0-31.0); Mean Corpuscular Volume 84.6 fL (80.0-94.0); Nucleated Red Blood Cells % 0 % (-); Platelet Count 76 10^3/uL (130-400); Red Blood Cell Count 3.05 10^6/uL (4.70-6.10); Red Cell Dist. Width 25.2 % (11.5-14.5); White Blood Cell Count 8.4 10^3/uL (4.8-10.8)
[2024-08-23 09:14] LABS: ALT (SGPT) 40 U/L (0-50); AST (SGOT) 129 U/L (17-59); Albumin 2.4 g/dl (3.5-5.0); Alkaline Phosphatase 114 U/L (38-126); Blood Urea Nitrogen 11 mg/dl (9-20); Calcium 8.2 mg/dl (8.4-10.2); Carbon Dioxide 23 mmol/L (22-30); Chloride 107 mmol/L (98-107); Estimated Creatinine Clearance > 125 ml/min; Glucose 82 mg/dl (70-99); Potassium 3.6 mmol/L (3.5-5.1); Sodium 139 mmol/L (135-145); Total Bilirubin 15.5 mg/dl (0.2-1.3); Total Protein 7.5 g/dl (6.3-8.2); eGFR > 60.00
--- NOTE | 2024-08-23 11:12 | W.PN.HOSP.TC ---
Today's Communication/Plan
-
pending bed
cont IVF
cont MSAS
Assessment / Plan
Assessment / Plan
38yo M with PMHx of b/l LE venous stasis with LLE wound developed months ago, alcohol abuse came with c/o yellowing sclera progressed for about 1 month. He was taking large doses of tylenol at home for his wound pain, but stopped 2 weeks ago since
found out about risk of liver failure with it. Since then he was taking ibuprofen. Also relapsed drinking approximately 6 months ago. Had positive alcohol level in blood on admission. Found acute liver falire and TYRESE. Accepted for the transfer to
[facility], pending bed
A/P:
#Acute liver failure
#Alcohol abuse with withdrawal
#Coagulopathy 2/2 liver failure
Acetylcysteine
Follow LFT, INR
Unclear if 2/2 alcohol only or complicated by recent tylenol use
GI follows
Avoid antiplatelets, anticoagulation and hepatotoxic drugs
Thiamine/Folate and watch for DT, MSAS protocol
CT with no dilated biliary duct
s/p vit K
#TYRESE
resolved
#Thickened gall bladder on US
add Flagyl
#Possible UTI
Ucx pending
Ceftriaxone
#Anemia
#thrombocytopenia
anisocytosis and target cells - alcohol induced BM suppression
Follow CBC
#Hematochezia with Hx of hemorrhoids
blood smear on toilet paper
follow Hgb
#LLE venous stasis wound
Wound care
Does not seem to be infected
#DJD
PT/OT
DVT ppx SCDs
Full code
Declined call to family
I have spent at least 37min reviewing chart, test results, communication with consultants and providing direct patient care
Anticipated Discharge: 24 - 48 hours
Subjective/Interval History
-
Date of Service: August 23, 2024
Objective Data
-
Labs:
Laboratory Results
08/23/24
08:05
WBC 8.4
Hgb 8.8 L
Hct 25.8 L
Plt Count 76 L
PT 34.5 H
INR 3.45
Sodium 139
Potassium 3.6
Chloride 107
Carbon Dioxide 23
BUN 11
Creatinine 1.0
Glucose 82
Calcium 8.2 L
Total Bilirubin 15.5 H
AST 129 H
ALT 40
Alkaline Phosphatase 114
Vital Signs:
Vital Signs
Temp Pulse Resp BP Pulse Ox
98.4 F 100 15 148/97 95
08/23/24 07:55 08/23/24 07:55 08/23/24 07:55 08/23/24 07:55 08/23/24 07:55
I&O
08/22/24 08/23/24 08/24/24
06:59 06:59 06:59
Intake Total 700 / 700 1230 / 1230
Balance 700 / 700 1230 / 1230
Review of Systems
-
History Source: Patient
All other systems: Reviewed and negative
Abdomen/GI: Reports Bloody Stools
Physical Exam
-
General: Comfortable
HEENT: Normocephalic
Respiratory: Clear to Auscultation
GI: Soft, Nontender and Nondistended
Musculoskeletal: No Clubbing and No Edema
Skin: Jaundice
Neuro: Awake, Alert, Oriented and AO x 3
Psych: Calm
--- NOTE | 2024-08-23 11:57 | W.PN.GI.CBS2 ---
Today's Communication / Plan
-
Continue NAC. Start Prednisolone. Monitor mental status. Pending transfer to [facility].
Assessment / Plan
-
Brian Barillas is a 38 y.o. male w/ pmhx polysubstance abuse (percocet abuse until 2018; alcohol abuse, last used 4 months ago) admitted with jaundice found to have significantly elevated LFTs and coagulopathy concerning for acute on chronic liver
injury liver failure. No known prior liver disease or elevations in LFTs. He admits to significant Tylenol use-- up to 24 tylenol tablets daily, last use was 4 months ago, at which time he switched to motrin 200mg up to 12 tablets daily, decreased
to 4 tablets at night. He was using these medications for pain related to venous stasis wounds on his ankle. He reports drinking 6 white claws daily.
PT 32.7 --> 34.2
INR 3.15 --> 3.40--> 3.75 --> 3.45
UDS negative
Salicylates <1
Acetaminophen level <10
Etoh level 64
Hgb 9.8 (previously 12.0 in October 2023)
Plt 78
Na 138
K3.8
BUN 11 -->12
Cr. 1.8 --> 1.4
Tbili 14.3 --> 14.8 --> 14.9 --> 15.5
GGT 116
AST 167 -->153--> 141--> 129
ALT 44 -->45 --> 44 --> 40
Alk phos 170--> 138-->67 --> 114
Albumin 2.8
Lipase 624
Ferritin 137
B12 >1000
Folate 2.9
PIPE, AMA, Anti-SLA, ASMA, Anti-LKM, ceruloplasmin, A1AT pending
HAV IgM Ab negative
HBsAg negative
HBsAb neg
HBcAb IgM neg
HCV Ab neg
HIV Ag/Ab pending
Abdominal US w/ dopplers: The liver is enlarged measuring 20.4 cm in length. There is severely increased echogenicty throughout the liver consistent with severe diffuse hepatic steatosis. The gallbladder is distended with layering sludge in the
lumen, mild diffuse thickening of the GB wall. Mild splenomegaly. Small volume ascites. The left hepatic vein is patent, middle and right hepatic veins not clearly visualized. The portal vein and hepatic artery are not clearly visualized.
CT A/P w/o contrast: The liver appears diffusely hypoattenuating. Mildly enlarged. Gallbladder is mildly distended which may be secondary to chronic liver disease or fasting state. Small volume ascites and splenomegaly suggestive of portal
hypertension. There is diffuse submucosal fatty deposition within the ascending and proximal transverse colon which is nonspecific and can be seen as a sequela of chronic inflammation.
#Acute on likely chronic liver injury-- suspect multifactorial, etoh + DILI (tylenol and motrin) with clinically significant portal HTN, coagulopathy, anemia and thrombocytopenia
-no evidence of encephalopathy, mental status remains intact
-thrombocytopenia, splenomegaly and mild ascites c/w portal HTN
-DF >100--> start prednisolone 40mg
-NAC gtt started 08/22
-Abdominal US w/ dopplers shows severe hepatic steatosis, mild hepatosplenomegaly, small volume ascites; unable to clearl visualize most of the vasculature, would repeat at some point
-hepatitis serologies negative
-thiamine, folate
-dose of Vitamin K given yesterday, will give an additional dose now
-Transfer to [facility] once bed available
If patient starts to exhibit signs of mental status change will call other transplant centers in attempts to expedite transfer process for urgent evaluation.
Subjective
Subjective
Date of Service: August 23, 2024
Patient seen in follow-up. Mentation intact. He was accepted for transfer to [facility] yesterday, currently awaiting bed. INR mildly improved this morning, 3.75 --> 3.45, given one dose of vitamin K yesterday. TYRESE resolved, Cr 1.4 --> 1.0
Objective
Data Reviewed
Laboratory Data:
Laboratory Results
08/23/24 08:05
08/23/24 08:05
Laboratory Results
PT 34.5 Sec (11.4-14.6) H 08/23/24 08:05
INR 3.45 08/23/24 08:05
APTT 73.0 Sec (23.4-35.0) H 08/21/24 20:54
Phosphorus 4.4 mg/dl (2.5-4.5) 08/22/24 08:07
Magnesium 2.0 mg/dl (1.6-2.3) 08/22/24 08:07
Total Bilirubin 15.5 mg/dl (0.2-1.3) H 08/23/24 08:05
AST 129 U/L (17-59) H 08/23/24 08:05
ALT 40 U/L (0-50) 08/23/24 08:05
Alkaline Phosphatase 114 U/L (38-126) 08/23/24 08:05
Lipase 624 U/L (23-300) H 08/21/24 20:54
Vital Signs and I&O:
Vital Signs
Temp Pulse Resp BP Pulse Ox
98.4 F 100 15 148/97 97
08/23/24 07:55 08/23/24 07:55 08/23/24 07:55 08/23/24 07:55 08/23/24 08:20
I&O
08/22/24 08/23/24 08/24/24
06:59 06:59 06:59
Intake Total 700 / 700 1230 / 1230
Balance 700 / 700 1230 / 1230
Physical Exam
Physical Exam
GENERAL: In no acute distress, appears comfortable
HEENT: +scleral icterus
ABDOMEN: +BS; soft, distended abdomen, NTTP
EXT: +LE edemea with chronic venous stasis wounds
SKIN: +jaundice
NEURO: AAOx3. No asterixes.
[2024-08-23] MEDS: PRELONE 40 MG PO (12:12)
[2024-08-23] MEDS: MEPHYTON 10 MG PO (13:07)
--- NOTE | 2024-08-23 13:21 | W.PN.UPDATE ---
Update Note
Progress Note Update
Ucx neg - Ceftriaxone can be stopped
Discussed with GI in details - low suspicion for gall bladder infection - stopping Flagyl
[2024-08-23 15:04] VITALS: BP 152/101
--- NOTE | 2024-08-24 08:55 | W.PN.UPDATE ---
Update Note
Progress Note Update
Discussed positive blood Cx with (hospitalist who is taking chau of patient in [facility])
[2024-08-25 01:32] LABS: ANA, IgG Reflex to HEp-2 Detected (None Detected)
[2024-08-25 01:52] LABS: F-Actin Antibody IgG 19 Units (0-19); Mitochondrial M2 Ab, IgG 4.4 Units (0.0-24.9)
[2024-08-25 03:26] LABS: Ceruloplasmin 13 mg/dL (15-30)
[2024-08-25 22:47] LABS: LKM-1 Ab (IgG) 1.8 U (0.0-24.9)
== END 2024-08-23 18:45 | disposition short-term general hospital (02) | DRG 896 ==
LOC: 4 WEST ACU 23:42
PROVIDERS: Nurse Practitioner Adult Health; Physician Assistant Medical; Student in an Organized Health Care Education/Training Program; ADMITTING PHYSICIAN Hospitalist; ATTENDING PHYSICIAN Internal Medicine; CONSULT PHYSICIAN Internal Medicine; EMERGENCY PHYSICIAN Emergency Medicine
DX: F10.139 Alcohol abuse with withdrawal, unspecified (principal); K72.00 Acute and subacute hepatic failure without coma; D68.4 Acquired coagulation factor deficiency; N17.9 Acute kidney failure, unspecified; Z68.41 Body mass index [BMI] 40.0-44.9, adult; K76.6 Portal hypertension; L97.329 Non-pressure chronic ulcer of left ankle with unspecified severity; R18.8 Other ascites; I87.8 Other specified disorders of veins; F17.200 Nicotine dependence, unspecified, uncomplicated; Y90.3 Blood alcohol level of 60-79 mg/100 ml; E66.01 Morbid (severe) obesity due to excess calories; D64.9 Anemia, unspecified; F32.A Depression, unspecified; F11.21 Opioid dependence, in remission; D69.59 Other secondary thrombocytopenia; K21.9 Gastro-esophageal reflux disease without esophagitis; E88.09 Other disorders of plasma-protein metabolism, not elsewhere classified; I83.023 Varicose veins of left lower extremity with ulcer of ankle; K64.8 Other hemorrhoids; K76.0 Fatty (change of) liver, not elsewhere classified; R16.2 Hepatomegaly with splenomegaly, not elsewhere classified; K71.8 Toxic liver disease with other disorders of liver; T39.315A Adverse effect of propionic acid derivatives, initial encounter; T39.1X5A Adverse effect of 4-Aminophenol derivatives, initial encounter; Y92.009 Unspecified place in unspecified non-institutional (private) residence as the place of occurrence of the external cause; Z56.0 Unemployment, unspecified
CPT/HCPCS: 71046; 74176; 76700; 80053; 80143; 80179; 80306; 81003; 81015; 82077; 82103; 82104; 82390; 82607; 82728; 82746; 82977; 83516; 83540; 83550; 83690; 83735; 84100; 85025; 85027; 85610; 85730; 86015; 86038; 86376; 86381; 86705; 86706; 86709; 86803; 86850; 86900; 86901; 87040; 87086; 87149; 87205; 87340; 87389; 93975; 99285; J0132; J7030

== ENCOUNTER 2024-09-13 15:26 | Emergency (ER) | payer BC, SELFPAY ==
[2024-09-13 15:30] VITALS: BP 176/99
[2024-09-13 16:17] LABS: ALT (SGPT) 124 U/L (0-50); AST (SGOT) 153 U/L (17-59); Albumin 2.6 g/dl (3.5-5.0); Alkaline Phosphatase 125 U/L (38-126); Blood Urea Nitrogen 17 mg/dl (9-20); Calcium 7.8 mg/dl (8.4-10.2); Carbon Dioxide 21 mmol/L (22-30); Chloride 105 mmol/L (98-107); Glucose 169 mg/dl (70-99); Potassium 3.7 mmol/L (3.5-5.1); Sodium 137 mmol/L (135-145); Total Bilirubin 9.5 mg/dl (0.2-1.3); Total Protein 7.6 g/dl (6.3-8.2); eGFR > 60.00
[2024-09-13 16:25] LABS: % Basophils 0.1 % (0-2); % Eosinophils 0.2 % (0-6); % Immature Granulocytes 1.1 % (0-0.5); % Lymphocytes 6.1 % (20.5-51.1); % Monocytes 6.7 % (1.7-9.3); % Neutrophils 85.8 % (42.2-75.2); Absolute Immature Granulocytes 0.1 10^3/uL (0-0.05); Absolute Lymphocytes 0.7 10^3/uL (1.2-3.4); Absolute Monocytes 0.8 10^3/uL (0.1-0.6); Absolute Neutrophils 9.7 10^3/uL (1.4-6.5); Hematocrit 27.3 % (39.0-52.0); Mean Corpuscular Hgb 31.8 pg (27.0-31.0); Mean Corpuscular Volume 96.5 fL (80.0-94.0); Mean Platelet Volume 12.3 fL (7.4-10.4); Nucleated Red Blood Cells % 0 % (-); Platelet Count 61 10^3/uL (130-400); Red Blood Cell Count 2.83 10^6/uL (4.70-6.10); Red Cell Dist. Width 23.5 % (11.5-14.5); White Blood Cell Count 11.3 10^3/uL (4.8-10.8)
[2024-09-13 16:26] LABS: Anisocytosis 1+; Hypochromasia 2+; Microcytosis 1+
[2024-09-13 16:27] LABS: Normal RBC Morphology No; Target Cells Occasional
[2024-09-13 18:30] LABS: Alcohol None Detected
[2024-09-13 19:07] LABS: INR 2.65; PT 28.2 Sec (11.4-14.6)
--- NOTE | 2024-09-13 19:07 | ED.GENMED ---
History of Present Illness
General
Chief Complaint: Swelling
Source: patient and records
Time Seen by Provider: 09/13/24 17:53
History of Present Illness
History of Present Illness:
38-year-old male with past medical history of alcoholic hepatitis, recent acute kidney injury, long-term substance abuse and alcohol abuse who was recently admitted at this facility and transferred to [facility] due to
worsening alcoholic hepatitis presenting back to the emergency department here today due to worsening edema with patient stating that the swelling is going all the way through his legs and even into his scrotum. Patient states he did contact his
doctors at the [facility] and they started him on 20 mg of Lasix once daily which he states has not been helping his symptoms despite noting it is making him urinate more. He denies any shortness of breath, orthopnea, PND, chest
pain, coughing or any other concerns. He has been following up regularly as scheduled with 2-3 times weekly labs and is scheduled to see his physician next week and has repeat labs scheduled for this coming Sunday. He denies any abdominal pain and
notes that he has not had any alcohol since he was admitted here a few weeks ago. Patient states that due to the worsening edema his doctor did say it was okay for him to increase his Lasix to 40 mg p.o. which he did but was still experiencing the
swelling so decided to come to the ER for further evaluation and IV diuresis.
Past History
Past History
ED Past Medical History: Renal failure, Psychiatric (Previous substance abuse but currently sober) and Other (Chronic venous stasis)
ED Past Surgical History: Orthopedic and Other
Social History
Tobacco: Smoker
Alcohol: Chronic alcoholic
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
Personal: Single
Living: alone
Employment: Employed
Review of Systems
Review of Systems
All Other Systems: ROS reviewed and negative except as documented in HPI and ROS
Phy Exam
Physical Exam
Physical Exam:
GENERAL: Alert , in no apparent distress
EYE: Icteric sclera
NECK: Supple
ENT: o/p clr, mmm.
CARDIAC: Regular rate and rhythm
LUNGS: Clear breath sounds bilaterally, no acute respiratory distress, no wheezes/rales/rhonchi
NEUROLOGICAL: Alert and oriented
SKIN: Warm and dry, chronic wounds to bilateral lower extremities left worse than right
MUSCULOSKELETAL: 2+ pitting edema through the proximal thigh into the groin
PSYCH: Normal and appropriate interaction.
Scores
Heart Failure Risk
Heart Failure Risk Score: Not Applicable
Heart Score for Chest Pain Patients
STEMI patient?: Not applicable
Withdrawal Assessment of Alcohol
Withdrawal Assessment Completed?: Not applicable
Course
Orders/Labs/Results
Orders:
Orders
09/13/24 15:39
Alcohol Urgent
CMP [Comprehensive Metabolic Panel] Urgent
Complete Blood Count/With Diff Urgent
09/13/24 17:53
Add On- LAB Urgent
Tests Added?: alcohol level, PT/PTT
09/13/24 18:06
Furosemide [Lasix] 40 mg IV NOW STA
09/13/24 18:50
Protime/PTT Urgent
Comment: MUST COLLECT. CANNOT ADD ON
09/13/24 19:38
Furosemide [Lasix] 40 mg .ROUTE .STK-MED ONE
Abnormal Lab Results
09/13/24 09/13/24
15:39 18:50
WBC 11.3 H 10^3/uL
(4.8-10.8)
RBC 2.83 L 10^6/uL
(4.70-6.10)
Hgb 9.0 L g/dL
(13.0-18.0)
Hct 27.3 L %
(39.0-52.0)
MCV 96.5 H fL
(80.0-94.0)
MCH 31.8 H pg
(27.0-31.0)
RDW 23.5 H %
(11.5-14.5)
Plt Count 61 L 10^3/uL
(130-400)
MPV 12.3 H fL
(7.4-10.4)
Abs Immat Gran (auto) 0.1 H 10^3/uL
(0-0.05)
Absolute Neuts (auto) 9.7 H 10^3/uL
(1.4-6.5)
Absolute Lymphs (auto) 0.7 L 10^3/uL
(1.2-3.4)
Absolute Monos (auto) 0.8 H 10^3/uL
(0.1-0.6)
Immature Gran % 1.1 H %
(0-0.5)
Neutrophils % 85.8 H %
(42.2-75.2)
Lymphocytes % 6.1 L %
(20.5-51.1)
PT 28.2 H Sec
(11.4-14.6)
APTT 41.7 H Sec
(23.4-35.0)
Carbon Dioxide 21 L mmol/L
(22-30)
Glucose 169 H mg/dl
(70-99)
Calcium 7.8 L mg/dl
(8.4-10.2)
Total Bilirubin 9.5 H mg/dl
(0.2-1.3)
AST 153 H U/L
(17-59)
ALT 124 H U/L
(0-50)
Albumin 2.6 L g/dl
(3.5-5.0)
09/13/24 15:39
09/13/24 15:39
Vital Signs
Initial and Last Documented VS:
Initial Vital Signs
Temp Pulse Resp BP Pulse Ox
98.9 F 108 18 176/99 98
09/13/24 15:30 04/26/25 15:30 09/13/24 15:30 09/13/24 15:30 09/13/24 15:30
Last Documented Vital Signs
Temp Pulse Resp BP Pulse Ox
98.9 F 91 18 142/86 98
09/13/24 15:30 09/13/24 19:35 09/13/24 15:30 09/13/24 19:35 09/13/24 18:34
MDM/Problems Addressed
Differential Diagnosis Includes:
Alcoholic liver cirrhosis, acute on chronic kidney injury, electrolyte derangement, worsening liver disease
MDM/Problems Addressed:
38-year-old male presenting to the emergency department for evaluation of worsening lower extremity edema over the last week or so, questionably improved on oral Lasix and recently had his 20 mg Lasix increased to 40. Requesting dose of IV Lasix.
Patient ultimately does not wish to be admitted and prefers to be discharged home. He already has outpatient arranged follow-up this coming week with his long-term care providers at [facility]. I discussed with patient that a
one-time IV dose of Lasix may not be sufficient enough and he still may have edema and might require more but patient ultimately prefers to still go home. Patient's renal function is within normal limits, stable AST and ALT and stable hemoglobin.
Patient is aware of return precautions to the ER.
Chronic conditions affecting care: Kidney disease and Other (Alcoholic liver cirrhosis)
*Pulse Oximetry
Patient hypoxic: no
*Critical Care Note
Total Time (30-74mins, 75-104mins- exclusive of procedures): Not Applicable
Data Reviewed
Review of Other/Old Records Reveals: Labs and Records
Patient Management
Social determinants of health affecting care: Other (Strong outpatient follow up)
ED Attending Note
-
Portions of this chart may have been created with voice recognition software.� Occasional wrong word or��sound alike� substitutions may have occurred due to the inherent limitations of voice recognition software.
Discharge Plan
Departure
Patient Disposition: Home (Routine Discharge)
Date of Disposition: 09/13/24
Time of Disposition: 19:13
Patient with high blood pressure during this ER visit?: Yes
Discharge Problem:
Edema, Alcoholic cirrhosis of liver
Instructions: Dependent Edema (DC)
Prescriptions:
No Action
famotidine [Pepcid AC] 20 mg Tablet
20 mg PO DAILYPRN PRN (Reason: gerd)
omeprazole magnesium [Prilosec OTC] 20 mg Tablet,Delayed Release (Dr/Ec)
40 mg PO DAILY
lorazepam [Ativan] 2 mg/mL Solution
1 mg IV Q1HPRN PRN (Reason: MSAS 8-11) Qty: 0 0RF
lorazepam [Ativan] 2 mg/mL Solution
2 mg IV Q1HPRN PRN (Reason: MSAS > 11) Qty: 0 0RF
folic acid 1 mg Tablet
1 mg PO DAILY Qty: 0 0RF
lorazepam 1 mg Tablet
1 mg PO Q2HPRN PRN (Reason: MSAS 5-7) Qty: 0 0RF
acetylcysteine 200 mg/mL (20 %) Solution
10,000 mg IV ONCE Qty: 0 0RF
acetylcysteine 200 mg/mL (20 %) Solution
5,000 mg IV ONCE Qty: 0 0RF
thiamine mononitrate (vit B1) 100 mg Tablet
100 mg PO BID Qty: 0 0RF
IV with Additives
0.9% Sodium Chloride 1000 ml [Nss] 1000 ML
125 mls/hr IV
Ordered By: Gilberto Guzman MD
Last Taken: Unknown
Referrals:
NONE,* [Family Provider] -
Interventions
Interventions:
*Risk Screen - Suicide Last Done: 09/13/24 15:30
*General Assessment Last Done: 09/13/24 15:30
*Neglect/Abuse Screening Last Done: 09/13/24 15:30
*ED- Fall Risk Assessment Last Done: 09/13/24 15:30
*ED COVID-19 Vaccine History Last Done: 09/13/24 15:30
ED- Cardiac Assessment Last Done: 09/13/24 18:34
ED- Pulmonary Assessment Last Done: 09/13/24 18:34
ED-Skin Assessment Last Done: 09/13/24 18:37
Discharge Date and Time
Print Language: MALIAN
[2024-09-13 19:08] LABS: APTT 41.7 Sec (23.4-35.0)
[2024-09-13] MEDS: LASIX 40 MG IV (19:35)
[2024-09-13 19:40] VITALS: BP 142/86
== END 2024-09-13 19:50 | disposition home or self-care (01) ==
LOC: EMR 15:26
PROVIDERS: EMERGENCY PHYSICIAN Student in an Organized Health Care Education/Training Program
DX: K70.30 Alcoholic cirrhosis of liver without ascites (principal); R60.0 Localized edema; K70.9 Alcoholic liver disease, unspecified; F17.200 Nicotine dependence, unspecified, uncomplicated
CPT/HCPCS: 99284; 96374; 80053; 82077; 85025; 85610; 85730

== ENCOUNTER 2024-09-23 13:23 | Emergency (ER) | payer BC, SELFPAY ==
[2024-09-23 13:31] VITALS: BP 157/94
[2024-09-23 13:52] LABS: % Basophils 0.2 % (0-2); % Eosinophils 0.6 % (0-6); % Immature Granulocytes 1.2 % (0-0.5); % Lymphocytes 12.8 % (20.5-51.1); % Monocytes 8.6 % (1.7-9.3); % Neutrophils 76.6 % (42.2-75.2); Absolute Eosinophils 0.1 10^3/uL (0-0.7); Absolute Immature Granulocytes 0.1 10^3/uL (0-0.05); Absolute Lymphocytes 1.4 10^3/uL (1.2-3.4); Absolute Monocytes 0.9 10^3/uL (0.1-0.6); Absolute Neutrophils 8.3 10^3/uL (1.4-6.5); Hematocrit 26.1 % (39.0-52.0); Hemoglobin 8.6 g/dL (13.0-18.0); Mean Corpuscular Hgb 32.3 pg (27.0-31.0); Mean Corpuscular Volume 98.1 fL (80.0-94.0); Mean Platelet Volume 11.9 fL (7.4-10.4); Nucleated Red Blood Cells % 0.2 % (-); Platelet Count 54 10^3/uL (130-400); Red Blood Cell Count 2.66 10^6/uL (4.70-6.10); Red Cell Dist. Width 19.9 % (11.5-14.5); White Blood Cell Count 10.9 10^3/uL (4.8-10.8)
[2024-09-23 13:59] LABS: INR 2.57; PT 27.6 Sec (11.4-14.6)
[2024-09-23 14:03] LABS: ALT (SGPT) 86 U/L (0-50); AST (SGOT) 106 U/L (17-59); Albumin 2.5 g/dl (3.5-5.0); Alcohol None Detected; Alkaline Phosphatase 138 U/L (38-126); Blood Urea Nitrogen 16 mg/dl (9-20); Calcium 7.6 mg/dl (8.4-10.2); Carbon Dioxide 28 mmol/L (22-30); Chloride 102 mmol/L (98-107); Glucose 125 mg/dl (70-99); Potassium 3.5 mmol/L (3.5-5.1); Sodium 136 mmol/L (135-145); Total Bilirubin 8.3 mg/dl (0.2-1.3); Total Protein 7.2 g/dl (6.3-8.2); eGFR > 60.00
--- NOTE | 2024-09-23 15:25 | ED.GENMED ---
ED Provider Triage
<Amanda Velez PA-C - Last Filed: 09/23/24 23:45>
-
Attestation: A medical screening examination has been initiated by a qualified medical provider. Based on the assessment performed at this time, it has been determined that an emergent medical condition may exist and the patient has been informed
that further medical evaluation and possible additional diagnostic testing may be needed.
HPI: 38-year-old male presenting with worsening pain and swelling of right lower extremity. He does have history of somewhat chronic edema of bilateral lower extremities although states swelling in right lower extremity worsened acutely on Sunday.
He noticed redness and bruising on Sunday. He is unable to bear weight. No fever, chills, chest pain, or shortness of breath.No numbness/tingling right lower extremity.
GENERAL: Alert , in no apparent distress
EYE: Mild scleral icterus bilaterally
NECK: Trachea midline
ENT: No visible abnormalities.
LUNGS: No acute respiratory distress
NEUROLOGICAL: Alert and oriented
SKIN: 2+ pitting edema of RLE from foot to knee with erythema and ecchymoses of right foot
MUSCULOSKELETAL: Moving extremities normally
PSYCH: Normal and appropriate interaction.
Will check ultrasound RLE to rule out DVT. Declines analgesia at this time
This is a medical evaluation conducted in person to initiate diagnostic evaluation and provide initial therapeutics. Please see further documentation by the treating clinician.
History of Present Illness
<Amanda Velez PA-C - Last Filed: 09/23/24 23:45>
General
Chief Complaint: Swelling
Source: patient
Exam Limitations: none
Time Seen by Provider: 09/23/24 16:24
Nursing documentation reviewed up to this point in time: agreed with
History of Present Illness
History of Present Illness:
Patient is a 38-year-old male with history cirrhosis, renal failure, substance abuse presenting to the emergency department for evaluation of right lower extremity swelling. Patient reports bilateral lower extremity swelling from his feet to his
hips over the past month since he was started on prednisone for his liver cirrhosis. Swelling became progressively worse in his right lower extremity on and he noticed redness/bruising on his right foot. Pain worsened over the weekend
lengthy difficulties with ambulation. He also noticed a small wound on right carter in the same area of a prior venous stasis ulcer. This has been draining a yellow liquid over the past 2 days.
Patient denies any chest pain, shortness of breath. No fevers or chills. No numbness or tingling of RLE.
He does have a history of venous stasis and wounds on lower extremities. Patient reports chronic wounds on his left lower leg which is being treated by wound care.
Past History
<Amanda Velez PA-C - Last Filed: 09/23/24 23:45>
Past History
ED Past Medical History: Renal failure, Psychiatric (Previous substance abuse but currently sober) and Other (Chronic venous stasis)
ED Past Surgical History: Orthopedic and Other
Social History
Tobacco: Smoker
Alcohol: Chronic alcoholic
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
Personal: Single
Living: alone
Employment: Employed
Review of Systems
<Amanda Velez PA-C - Last Filed: 09/23/24 23:45>
Review of Systems
Allergies reviewed?: Yes
All Other Systems: ROS reviewed and negative except as documented in HPI and ROS
Phy Exam
<Amanda Velez PA-C - Last Filed: 09/23/24 23:45>
Physical Exam
Physical Exam:
Vitals: Hypertensive, otherwise vital signs are stable. Afebrile
General: Patient is in no acute distress
Skin: Mild jaundice. Small wound to right anterior carter with serous drainage
Head: Normocephalic, atraumatic
Eyes: Scleral icterus bilaterally. EOMs intact. No nystagmus.
Throat: Protecting airway
Neck: Normal ROM, no cervical spine tenderness, no meningismus
Cardiac: Regular rate and rhythm, no murmurs.
Pulm: Normal respiratory effort, no wheezes, rales, rhonchi heard on exam.
Abdomen: Mild distention. No focal tenderness
Extremities: 3+ pitting edema of bilateral lower extremities from foot to mid thigh. Wound to right anterior carter. Erythema and ecchymoses to right carter and foot. Dopplerable pulses bilaterally.
Neuro: AAOx3. Grossly intact.
Psychiatric: Normal affect.
Course
<Amanda Velez PA-C - Last Filed: 09/23/24 23:45>
Orders/Labs/Results
Orders:
Orders
09/23/24 13:38
Alcohol Urgent
Complete Blood Count/With Diff Urgent
Comprehensive Metabolic Panel Urgent
NT-proBNP Urgent
Comment: ADD ON
PTT Urgent
Prothrombin Time Urgent
09/23/24 15:30
Add On- LAB Urgent
Tests Added?: pro-BNP
US Legs, Right [US Periph Venous LOWER Ext RT] Urgent
Comment:
Reason For Exam: RLE pain and swelling
09/23/24 19:48
Cephalexin Monohydrate [Keflex] 500 mg PO NOW STA
Abnormal Lab Results
09/23/24
13:38
WBC 10.9 H 10^3/uL
(4.8-10.8)
RBC 2.66 L 10^6/uL
(4.70-6.10)
Hgb 8.6 L g/dL
(13.0-18.0)
Hct 26.1 L %
(39.0-52.0)
MCV 98.1 H fL
(80.0-94.0)
MCH 32.3 H pg
(27.0-31.0)
RDW 19.9 H %
(11.5-14.5)
Plt Count 54 L 10^3/uL
(130-400)
MPV 11.9 H fL
(7.4-10.4)
Abs Immat Gran (auto) 0.1 H 10^3/uL
(0-0.05)
Absolute Neuts (auto) 8.3 H 10^3/uL
(1.4-6.5)
Absolute Monos (auto) 0.9 H 10^3/uL
(0.1-0.6)
Immature Gran % 1.2 H %
(0-0.5)
Neutrophils % 76.6 H %
(42.2-75.2)
Lymphocytes % 12.8 L %
(20.5-51.1)
PT 27.6 H Sec
(11.4-14.6)
APTT 43.0 H Sec
(23.4-35.0)
Glucose 125 H mg/dl
(70-99)
Calcium 7.6 L mg/dl
(8.4-10.2)
Total Bilirubin 8.3 H mg/dl
(0.2-1.3)
AST 106 H U/L
(17-59)
ALT 86 H U/L
(0-50)
Alkaline Phosphatase 138 H U/L
(38-126)
Albumin 2.5 L g/dl
(3.5-5.0)
09/23/24 13:38
09/23/24 13:38
Vital Signs
Initial and Last Documented VS:
Initial Vital Signs
Temp Pulse Resp BP Pulse Ox
99.2 F 80 16 157/94 98
09/23/24 13:31 09/23/24 13:31 09/23/24 13:31 09/23/24 13:31 09/23/24 13:31
Last Documented Vital Signs
Temp Pulse Resp BP Pulse Ox
98.1 F 99 18 160/80 99
09/23/24 17:05 09/23/24 20:15 09/23/24 20:15 09/23/24 20:15 09/23/24 20:15
Juanlt;Chun Shirley, DO - Last Filed: 09/23/24 19:26>
Orders/Labs/Results
Orders:
Orders
09/23/24 13:38
Alcohol Urgent
Complete Blood Count/With Diff Urgent
Comprehensive Metabolic Panel Urgent
NT-proBNP Urgent
Comment: ADD ON
PTT Urgent
Prothrombin Time Urgent
09/23/24 15:30
Add On- LAB Urgent
Tests Added?: pro-BNP
US Legs, Right [US Periph Venous LOWER Ext RT] Urgent
Comment:
Reason For Exam: RLE pain and swelling
09/23/24 19:48
Cephalexin Monohydrate [Keflex] 500 mg PO NOW STA
Abnormal Lab Results
09/23/24
13:38
WBC 10.9 H 10^3/uL
(4.8-10.8)
RBC 2.66 L 10^6/uL
(4.70-6.10)
Hgb 8.6 L g/dL
(13.0-18.0)
Hct 26.1 L %
(39.0-52.0)
MCV 98.1 H fL
(80.0-94.0)
MCH 32.3 H pg
(27.0-31.0)
RDW 19.9 H %
(11.5-14.5)
Plt Count 54 L 10^3/uL
(130-400)
MPV 11.9 H fL
(7.4-10.4)
Abs Immat Gran (auto) 0.1 H 10^3/uL
(0-0.05)
Absolute Neuts (auto) 8.3 H 10^3/uL
(1.4-6.5)
Absolute Monos (auto) 0.9 H 10^3/uL
(0.1-0.6)
Immature Gran % 1.2 H %
(0-0.5)
Neutrophils % 76.6 H %
(42.2-75.2)
Lymphocytes % 12.8 L %
(20.5-51.1)
PT 27.6 H Sec
(11.4-14.6)
APTT 43.0 H Sec
(23.4-35.0)
Glucose 125 H mg/dl
(70-99)
Calcium 7.6 L mg/dl
(8.4-10.2)
Total Bilirubin 8.3 H mg/dl
(0.2-1.3)
AST 106 H U/L
(17-59)
ALT 86 H U/L
(0-50)
Alkaline Phosphatase 138 H U/L
(38-126)
Albumin 2.5 L g/dl
(3.5-5.0)
09/23/24 13:38
09/23/24 13:38
Vital Signs
Initial and Last Documented VS:
Initial Vital Signs
Temp Pulse Resp BP Pulse Ox
99.2 F 80 16 157/94 98
09/23/24 13:31 09/23/24 13:31 09/23/24 13:31 09/23/24 13:31 09/23/24 13:31
Last Documented Vital Signs
Temp Pulse Resp BP Pulse Ox
98.1 F 99 18 160/80 99
09/23/24 17:05 09/23/24 20:15 09/23/24 20:15 09/23/24 20:15 09/23/24 20:15
<Amanda Velez PA-C - Last Filed: 09/23/24 23:45>
MDM/Problems Addressed
Differential Diagnosis Includes:
Not limited to: Dependent edema, cellulitis, DVT, venous stasis, CHF, etc.
MDM/Problems Addressed:
38-year-old male with history as documented presenting with worsening swelling and pain of right lower extremity. No fever, chills, chest pain, shortness of breath, or abdominal pain. Patient hypertensive, with otherwise stable vital signs. He is
afebrile. Physical exam as above. Patient has 3+ pitting edema of bilateral lower extremities from foot to mid thigh. He has notable and ecchymoses of right carter and foot with small wound on anterior carter. Suspect pitting edema likely secondary
to liver cirrhosis. However�given erythema�concern for possible infectious component. Will check ultrasound of right lower extremity to rule out DVT. Labs were obtained in triage significant for anemia and thrombocytopenia likely secondary to
chronic liver disease. Chemistry shows hyperbilirubinemia and transaminitis likely secondary to cirrhosis as well as hypocalcemia.
Update: Attending physician and to assess patient. He did speak with rd lab technician/radiologist who stated ultrasound was negative for DVT. Patient requesting IV Lasix although given borderline hypokalemia and hypocalcemia�do not feel is indicated
at this time. Recommended admission for IV antibiotics for suspected cellulitis however patient declines. He would prefer to follow-up with his doctors at [facility]. Will start patient on oral Keflex for possible infectious component. Strict return
precautions discussed.
Chronic conditions affecting care:
Cirrhosis of liver, acute renal failure
Acute Exacerbation and/or Progression of Chronic Illness:
N/A
<Amanda Velez PA-C - Last Filed: 09/23/24 23:45>
*Radiology
Radiology exam reviewed: radiology read reviewed
*Pulse Oximetry
Patient hypoxic: no
*EKG
Interpreted by ED Provider?: NA
*Motor And Generator Assembler Interpretation
Rate: Motor And Generator Assembler- N/A
*Critical Care Note
Total Time (30-74mins, 75-104mins- exclusive of procedures): Not Applicable
ED Attending Note
<Amanda Velez PA-C - Last Filed: 09/23/24 23:45>
-
Portions of this chart may have been created with voice recognition software.� Occasional wrong word or��sound alike� substitutions may have occurred due to the inherent limitations of voice recognition software.
<Chun Shirley DO - Last Filed: 09/23/24 19:26>
ED Attending Note
Patient seen and examined by attending physician: Yes
ED Attending Note:
I have reviewed and agree with history and treatment plan by Amanda Velez PA-C. My exam revealed 38-year-old male with ascites, bilateral lower extremity edema, mild ecchymosis right lower leg, possible cellulitis. Patient's labs show
hypocalcemia, mild, potassium 3.5. Patient requesting IV Lasix, not indicated at this time. Patient declines admission. Will discharge follow-up with transplant physician at [facility].
Discharge Plan
Departure
Patient Disposition: Home (Routine Discharge)
Date of Disposition: 09/23/24
Time of Disposition: 19:51
Patient with high blood pressure during this ER visit?: Yes
Condition: Good
Covid-19: Not Applicable
Discharge Problem:
Cellulitis of right lower extremity, Bilateral lower extremity edema
Instructions: Cellulitis (skin infection) in adults - ED discharge instructions, BLOOD PRESSURE
Prescriptions:
New
cephalexin 500 mg capsule
500 mg PO QID 7 Days Qty: 28 0RF
No Action
famotidine [Pepcid AC] 20 mg Tablet
20 mg PO DAILYPRN PRN (Reason: gerd)
omeprazole magnesium [Prilosec OTC] 20 mg Tablet,Delayed Release (Dr/Ec)
40 mg PO DAILY
lorazepam [Ativan] 2 mg/mL Solution
1 mg IV Q1HPRN PRN (Reason: MSAS 8-11) Qty: 0 0RF
lorazepam [Ativan] 2 mg/mL Solution
2 mg IV Q1HPRN PRN (Reason: MSAS > 11) Qty: 0 0RF
folic acid 1 mg Tablet
1 mg PO DAILY Qty: 0 0RF
lorazepam 1 mg Tablet
1 mg PO Q2HPRN PRN (Reason: MSAS 5-7) Qty: 0 0RF
acetylcysteine 200 mg/mL (20 %) Solution
10,000 mg IV ONCE Qty: 0 0RF
acetylcysteine 200 mg/mL (20 %) Solution
5,000 mg IV ONCE Qty: 0 0RF
thiamine mononitrate (vit B1) 100 mg Tablet
100 mg PO BID Qty: 0 0RF
IV with Additives
0.9% Sodium Chloride 1000 ml [Nss] 1000 ML
125 mls/hr IV
Ordered By: Gilberto Guzman MD
Last Taken: Unknown
Referrals:
Abram Archuleta MD [Family Provider] -
Activity Restrictions/Additional Instructions:
RETURN TO THE EMERGENCY DEPARTMENT ANY FEVER, CHILLS, WORSENING SWELLING OR REDNESS OF LOWER EXTREMITIES, NUMBNESS/TINGLING IN LOWER EXTREMITIES, CHEST PAIN, SHORTNESS OF BREATH, OR ANY OTHER CONCERNS
- As discussed�there is concern for a cellulitis or infection of your right lower leg. A prescription for Keflex has been sent to your pharmacy. You should take this 4 times a day for the next week.
- Continue to take all your other medications as prescribed.
- Continue to elevate your legs as often as possible.
- Follow-up with your doctors at [place] for further evaluation/management to ensure that symptoms are improving
Monitor your symptoms closely and return to the emergency department with any acute worsening/new symptoms or any other concerns
Interventions
Interventions:
*Risk Screen - Suicide Last Done: 09/23/24 13:31
*General Assessment Last Done: 09/23/24 13:31
*Neglect/Abuse Screening Last Done: 09/23/24 13:31
*ED- Fall Risk Assessment Last Done: 09/23/24 13:31
*ED COVID-19 Vaccine History Last Done: 09/23/24 13:31
*Nursing Disposition Last Done: 09/23/24 20:24
ED- Cardiac Assessment Last Done: 09/23/24 17:06
ED- Pulmonary Assessment Last Done: 09/23/24 17:06
ED-Skin Assessment Last Done: 09/23/24 17:06
Discharge Date and Time
Discharge Date/Time: 09/23/24 20:29
Print Language: BRAZILIAN
[2024-09-23 16:39] LABS: NT-proBNP 506 pg/ml
[2024-09-23 17:03] VITALS: BMI 48.0
[2024-09-23 17:05] VITALS: BP 149/66
[2024-09-23 19:01] VITALS: BP 143/81
[2024-09-23 20:15] VITALS: BP 160/80
[2024-09-23] MEDS: KEFLEX 500 MG PO (20:18)
== END 2024-09-23 20:29 | disposition home or self-care (01) ==
LOC: EMR 13:23
PROVIDERS: EMERGENCY PHYSICIAN Emergency Medicine; FAMILY PHYSICIAN Student in an Organized Health Care Education/Training Program
DX: L03.115 Cellulitis of right lower limb (principal); R60.0 Localized edema; K74.60 Unspecified cirrhosis of liver; N17.9 Acute kidney failure, unspecified; E83.51 Hypocalcemia; F17.200 Nicotine dependence, unspecified, uncomplicated; R18.8 Other ascites
CPT/HCPCS: 99283; 80053; 82077; 83880; 85025; 85610; 85730